=== PATIENT | female | born 1940 | race Caucasian/White ===

== ENCOUNTER → 2017-11-10 | Outpatient (CLI) | payer OTHER ==
[~2017-11-10] MED LIST: ADULT LOW DOSE81 MG PO; ASPIRIN325 PO; BYSTOLIC2.5 MG PO; CALCIUM 600 +1 EAC5 PO; CALCIUM PO; CLONAZEPAM PO; COMPAZINE10 M1 PO; DOXEPIN 50MG CA50 M1 PO; FLORINEF ACETA0.1 MG; FLORINEF ACETA0.1 MG PO; FOLIC ACID 40400 MC1 PO; IMDUR 30 MG TAB30 M1 PO; LOPRESSOR25 PO; MICARDIS40 MG PO; NIFEDICAL XL60 MG PO; NITROSTAT0.4 MG SL; NOHOMEMEDICATIONS; NORCO 5-325 TA1 EACH PO; PLAVIX 75 MG TA75 MG PO; PROCARDIA XL30 MG PO; VITAMIN D1000 UNI1 PO; VITAMINC500 PO; ZANTAC 150MG T150 M1 PO; ZOCOR40 MG PO
== END ==
LOC: M.RAD 11:21
DX: Z12.31 Encounter for screening mammogram for malignant neoplasm of breast (principal)

== ENCOUNTER → 2018-11-11 | Outpatient (CLI) | payer OTHER | LOC: M.RAD 08:22 | DX: Z12.31 Encounter for screening mammogram for malignant neoplasm of breast (principal) ==

== ENCOUNTER → 2020-02-23 | Outpatient (CLI) | payer OTHER | LOC: M.RAD 08:09 | DX: Z12.31 Encounter for screening mammogram for malignant neoplasm of breast (principal) ==

== ENCOUNTER → 2021-02-15 | Outpatient (CLI) | payer OTHER | LOC: M.RAD 08:47 | DX: Z12.31 Encounter for screening mammogram for malignant neoplasm of breast (principal) ==